=== PATIENT | female | born 2000 | race Caucasian/White ===

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

== ENCOUNTER 2018-01-30 20:43 | Emergency (ER) | payer BC ==
[~2018-01-30] VITALS: Ht 172.7 cm; Wt 59.1 kg
[~2018-01-30 20:43] MED LIST: TAMIFLU 75MG75 MG PO
[2018-01-30 20:48] VITALS: BP 138/74; TEMP 98.1
[2018-01-30 21:54] VITALS: PULSE 73
== END 2018-01-30 21:54 | disposition home or self-care (01) ==
LOC: COL.ER 20:43
DX: S06.0X0A Concussion without loss of consciousness, initial encounter (principal); W01.0XXA Fall on same level from slipping, tripping and stumbling without subsequent striking against object, initial encounter